=== PATIENT | male | born 1970 | race Caucasian/White ===

== ENCOUNTER → 2020-09-11 16:49 | Outpatient (CLI) | payer OTHER, SELFPAY ==
[2020-09-06 17:54] VITALS: BMI 32.0
--- NOTE | 2020-09-11 16:51 | RAD_ITS ---
STUDY: X-RAY CHEST REASON FOR EXAM: Male, 50 years old. asthma exacerbation TECHNIQUE: PA and lateral COMPARISON: 08/16/2014 FINDINGS: Less than optimal inspiratory effort is seen. There is minor discoid atelectasis at left base. There is no demonstrated pleural abnormality. Normal size heart. Normal mediastinum and ousmane. Normal visualized pulmonary arteries. Normal visualized aortic arch and descending thoracic aorta. Normal visualized thoracic spine. Normal visualized ribs, clavicles, and shoulders. There is no demonstrated abnormality of the visualized soft tissue structures of the upper abdomen. RAD/Chest PA and Lateral IMPRESSION: Diminished inspiratory effort and minor discoid atelectasis in left lower lobe. Electronically Signed: John Faria MD at 17:03 EDT , Service support ,
== END ==
PROVIDERS: Referring Provider Physician Assistant; Visit Provider Physician Assistant
DX: J45.901 Unspecified asthma with (acute) exacerbation (principal); R05 Cough
CPT/HCPCS: 71046

== ENCOUNTER 2020-10-28 17:00 | Outpatient (RCR) | payer OTHER, SELFPAY ==
[2020-03-25 15:12] VITALS: BMI 32.0
--- NOTE | 2020-08-15 18:51 | HP.PTEVAL ---
Patient's Visit Information HAYLEY SMART is a 50 year old M referred to Physical Therapy by ALFA ORDAZ with a diagnosis of tethered cord, numbness. Date of Evaluation: 08/15/20 Physical Therapist: Hermes Pizarro, DPT, OCS, CSCS - Visit Plan Frequency: 2-3x /Week Duration: 4-6 Weeks Plan: 2-3x/week for 4-6 weeks for...\. 1. rollout and stretch gastroc , quad and HS and progress to home stretch and foam roll. 2. LB AROM and core strength, progressing to ankle strength adn eventual machine general strength. 3. May use TENs and Mh for LB if painful. - Subjective Had back surgery May 27 due to tethered cord adn took some bone out and removed cyst from spine as they were giving him neuropathy in feet with numbness weakness pain in feet adn worseninig. Has had increasing trouble for 5 years. 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 Won't know outcome of surgery for 6-12 onths. Still has 7/10 pain in feet and LBP. Weakness in both legs noticeable going up and down hill and steps. Doesn't walk as fast as he should. Numbness in both feet all the time constant.Used TENS on back previously. Sleep is interrupted with pain and numbness in feet and back. Works in [employer]. 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 Doctor does not want him lifting heavy stuff for 6 months to a year. No hobbies: Dresses self, shower I. Cleaning up around the house. - Objective Walks I into PT with a mildly neuropathic steppage gait pattern, can toe walk easily but much harder to heel walker. AScends and descends steps without rail fairly easily. Traser chair and bed I. ankle AROM WFL except DF limited to -8 B, very tight in B gastroc-soleus. weakness in DF to 3 n L and 3+ R, inv and ev 3+ and PF 4+. Knee aROM is full and painfree, HS min tight at -25 90/90 adn quads mod tight , hip flexors mod tight with + madhav test. Strenth knees 4+/5,. Hip aROM WFL adn without pain, strength hip ext and abduction 3+ and flexion 4 without pain. reflexes 3/3 patella and achilles B. Sensation at deficit in B feet to gross light touch. B AROM ext max limited and slightly painful centrally, flexion mod limited and no pain,, SB min limited without pain. - SLR, - slump test. - Balance Scores Functional Gait Assessment Score: 27 % Disability: 10.0000 - Goals Goal 1:: Patient feel 50% better in LBP and foot symptoms to 3/10 at worst. Goal Time Frame: 4-6 Weeks Goal 2:: I approp HEP to limit future problems Goal Time Frame: 4-6 Weeks Goal 3:: oswestry LB 5/10 or better Goal Time Frame: 4-6 Weeks - Rehabilitation Potential Physical Therapy Diagnosis: Weakness and pain/numbness from tethered cord causing mobility and comfort deficits. Rehabilitation Potential: Questionable - Anticipated Interventions Patient/Client Instruction: Educate patient on: Condition For the Purpose of:: To decrease pain, To improve nutrient delivery to tissue, To improve muscle performance and motor function, To increase tolerance to activity/condition/position Therapeutic Exercise to Include: Strength training, Flexibilty training, Passive ROM, Active ROM For the Purpose of:: To decrease pain, To increase ROM, To improve muscle performance and motor function, To increase tolerance to activity/condition/position, To improve ability of physical actions for home/community/work/leisure Manual Therapy Techniques to Include: Soft tissue mobilization For the Purpose of:: To improve nutrient delivery to tissue TENS: Yes Thermo therapy (hot pack): Yes For the Purpose of:: To decrease pain, To increase ROM, To improve muscle performance and motor function Thank you for the opportunity to evaluate your patient. For Medicare and Medicare HMO plans, please review the plan of care and approve it. It will need to be FAXED BACK to us at [phone] for Medicare purposes. For Medicare only, by signing this I certify the plan of care. Please let me know if there are questions or concerns regarding this plan of care. Physician Signature: Date:
--- NOTE | 2020-11-12 18:00 | HP.PT.NRP ---
HAYLEY SMART was seen in my office for initial evaluation on 08/15/20. The following Plan of Care was established for this patient: Initial Frequency: 2-3x /Week Initial Duration: 4-6 Weeks Patient/Client Instruction: Educate patient on: Condition For the Purpose of:: To decrease pain, To improve nutrient delivery to tissue, To improve muscle performance and motor function, To increase tolerance to activity/condition/position Therapeutic Exercise to Include: Strength training, Flexibilty training, Passive ROM, Active ROM For the Purpose of:: To decrease pain, To increase ROM, To improve muscle performance and motor function, To increase tolerance to activity/condition/position, To improve ability of physical actions for home/community/work/leisure Manual Therapy Techniques to Include: Soft tissue mobilization For the Purpose of:: To improve nutrient delivery to tissue TENS: Yes Thermo therapy (hot pack): Yes For the Purpose of:: To decrease pain, To increase ROM, To improve muscle performance and motor function This patient was last seen in our office 10/28/20. Pertinent comments regarding their Physical therapy will appear below: Pt seen 7 visits of POC but no showed for multiple visits including the last 3. I will disocntinue him at this time due to nonattendance. At this point I will be discontinuing this patient from physical therapy. I would be happy to see this patient again in the future if found appropriate by the physician. Thank you! Hermes Pizarro, DPT, OCS, CSCS Balance/Gait/Functional tests - Balance/Special Test Scores Functional Gait Assessment Score: 27 % Disability: 10.0000 Oswestry Low Back Score: 11
== END 2020-10-28 19:00 | disposition home or self-care (01) ==
LOC: PT 17:00
DX: Q06.8 Other specified congenital malformations of spinal cord (principal); R20.0 Anesthesia of skin
CPT/HCPCS: 97110; 97140; 97163

== ENCOUNTER 2021-12-27 15:21 | Emergency (ER) | payer BC, SELFPAY ==
[2021-12-27 15:22] VITALS: BP 146/88; PULSE 66; RESP 18; TEMP 36; O2SAT 100; BMI 26.4
--- NOTE | 2021-12-27 15:56 | EX.ED.VIS.PS ---
HPI HPI - Psych History of Present Illness Chief Complaint: Anxiety Informant: patient Onset/Context/Timing Onset: Weeks Context: Gradual Onset Conflict: Family Timing: Continuous Current Severity: Mild Associated Symptoms Associated Symptoms - Psych: Negative for Suicidal Thoughts, Flight of Ideas, Threatening, Confusion, Visual Hallucinations or Auditory Hallucinations Narrative Narrative: 51-year-old male no severe past medical history other than prior back surgery. Said he is currently having marital issues she thinks this could end in divorce. He and his are still living they have 2 children. Said he has been having decreasing sleep. He has had a 15 to 20 pound weight loss over the last 2 months due to the stress. And he 1 wants to talk to somebody and to was hoping there was some medication he could be is prescribed to take the edge off of it. He has an appointment to see his primary care provider on Wednesday. He denies being homicidal or suicidal. Prior similar symptoms: No Recent Illness/Hospitalization: No PFSH PFS Medical History Acute bronchitis, unspecified Asthma Atelectasis of left lung Contact dermatitis due to poison dani Home Medications levothyroxine 50 mcg tablet tablet PO 09/06/20 [History Last Taken Unknown] lorazepam 0.5 mg tablet (Ativan) 0.5 mg PO TID PRN anxiety 5 days #10 tabs 12/27/21 [Rx Last Taken Unknown] Allergy/AdvReac Type Severity Reaction Status Date / Time No Known Allergies Allergy Verified 12/27/21 15:21 Social History Smoking Status: Never smoker alcohol intake: current alcohol intake frequency: holidays/special occasions only ROS ROS ED ROS Narrative Denies recent illness. Review of Systems ROS Unobtainable: Denies due to encephalopathy Constitutional Constitutional ED: Denies chills or fever(s) Eyes Eyes: Denies blurry vision ENT ENT ED: Denies ear pain Cardiovascular Cardiovascular: Denies chest pain Respiratory/Chest Respiratory/Chest: Denies cough or dyspnea Gastrointestinal Gastrointestinal: Denies abdominal pain Genitourinary Genitourinary ED: Denies dysuria or hematuria Musculoskeletal Musculoskeletal: Denies arthralgias Integumentary Denies abscess Neurologic Neurologic: Denies headache(s) Psychiatric Psychiatric: Reports anxiety; Denies suicidal ideation or suicidal thoughts Endocrine Endocrinology: Denies polydipsia Hematologic/Lymphatic Hematologic/Lymphatic: Denies easy bleeding Allergic/Immunologic Allergic/Immunologic ED: Denies mouth swelling or tongue swelling EXAM Physical Exam Narrative Exam Narrative: Well-appearing 51-year-old male. Vital signs stable afebrile. Exam normal. Awake and alert. Makes eye contact. Forthcoming with information. Heart, lung, abdominal exams all normal. Const Vital Signs: 12/27/21 15:22 Temperature 96.8 F L Temperature Source Temporal Pulse Rate 66 Respiratory Rate 18 Blood Pressure 146/88 H Blood Pressure Mean 107 Pulse Ox 100 Oxygen Delivery Method Room Air Positive well nourished and well developed; Negative for obese, cachectic, contractures or unkempt General Appearance ED: well developed and NAD; Negative for unkempt, cachectic, contractures or pallor Nutritional Appearance: Negative for cachectic or obese HEENT Reports moist mucous membranes normocephalic and atraumatic; Negative for trauma or tenderness Eyes PERRL and EOMs intact bilaterally General Eye ED: Negative for pale conjunctiva or scleral icterus Neck no lymphadenopathy, supple and no JVD General: Negative for tenderness Resp normal respiratory effort and clear to auscultation bilaterally Effort and Inspection: Negative for retractions Auscultation: Negative for rales, rhonchi or wheezes Cardio S1 normal heart sound, S2 normal heart sound and no murmurs Rate: regular rate; Negative for bradycardia or tachycardic Rhythm: regular rhythm; Negative for abnormal rhythm GI non-tender, non-distended and no masses Inspection: Negative for abdominal distention Auscultation: normoactive bowel sounds Palpation: soft; Negative for tender or guarding Back/Spine no CVA tenderness General Back: Negative for CVA tenderness Cervical Spine: Negative for cervical spine tenderness Thoracic Spine / Upper Back: Negative for thoracic spinal tenderness Lumbar Spine / Lower Back: Negative for lumbar spinal tenderness Extremity normal to inspection General Extremety ED: Negative for edema or tenderness General Extremity: Negative for edema Neuro oriented x3, CN's II-XII intact bilaterally and no sensory deficits noted Sensorium / Orientation: alert, oriented to person, oriented to place and oriented to time; Negative for orientation impaired, confused, lethargic or stuporous Motor Exam: strength 5/5 throughout Psych mental status grossly normal, thought process normal, cooperative, affect normal, speech normal, activity/motor behavior normal, denies hallucinations, denies homicidal ideation and denies suicidal ideation Appearance: grossly normal, appropriate and well kempt; Negative for unkempt Attitude: calm, engaged, No paranoid, No withdrawn, No bizarre, No uncooperative and No evasive Activity / Motor Behavior: appropriate eye contact; Negative for restless or mannerisms Speech: normal speech, No incoherent, No excessive and No minimal Mood & Affect: euthymic mood Thought Process: normal thought process, No circumstantial, No incoherent, No impoverished, No loose associations and No perseverating Memory / Cognition: memory grossly intact Insight: insight good Judgement: judgement good Skin General Skin Exam: Negative for jaundice or pallor Lesions: no lesions Rashes: no rashes Trauma: Negative for abrasion Wounds: Negative for amputation MDM MDM MDM Narrative Medical decision making narrative: 51-year-old male with anxiety. Exam normal. Already short prescription of half milligram Ativan 10 no refill. He sees his primary care provider on Wednesday and they can discuss long-term antianxiety medications. Also he is going to speak with our family welfare social work professor for other resources for his anxiety. Discharge Plan Triage Chief Complaint: Anxiety ED Provider: Robe Gomez Dx/Rx/DC Orders Clinical Impression: Anxiety Instructions: ED Anxiety Reaction Prescriptions: New lorazepam [Ativan] 0.5 mg tablet 0.5 mg PO TID PRN (Reason: anxiety) 5 Days Qty: 10 0RF No Action levothyroxine 50 mcg tablet PO Primary Care Provider: Care Physician,No Primary Referrals: Care Physician,No Primary [Primary Care Provider] - Syed Macdonald PA [Non-Staff] - As soon as possible Activity Restrictions/Additional Instructions: Follow-up with your scheduled primary care provider appointment on Wednesday. Discussed with him long-term antianxiety medication. Ativan as needed for anxiety. Do not drink alcohol or drive with it. Also consider other ways to treat anxiety that has counseling, exercise, meditation and yoga. Look into groups that meet to go over the issues. Disposition Disposition: Home, Self Care
--- NOTE | 2021-12-27 17:35 | CM.ED ---
NIDHI Note SW was advised by MD Gomez that patient needs resources. No assessment needed. Patient denied SI/HI to MD. SW met with patient. and him are going through a divorce per MD. Patient said that he has lost weight (20 lbs in a couple of weeks) and also has not been productive at work. Patient said that he has racing thoughts and was triggered this morning. Patient denied SI/HI. Patient said that he and are both doing individual counseling but while his therapist is nice it is not a fit. SW discussed that patient needs to focus on him and his behaviors during this time as no one can control others behavior. NIDHI educated patient on IOP/PHP program. Patient said that his employer would be receptive to him going to the program and would not fire him. Patient said that he is off on Wednesday and would be able to do assessment. SW gave him brochure and handout on IOP/PHP program. NIDHI sent email to Cassandra Muhammad regarding patient. Plan: Referral to IOP/PHP program Mary DONOVAN
== END 2021-12-27 16:22 | disposition home or self-care (01) ==
PROVIDERS: Emergency Provider Emergency Medicine; PCP Physician Assistant; Visit Provider Emergency Medicine
DX: F41.9 Anxiety disorder, unspecified (principal); J45.909 Unspecified asthma, uncomplicated; Z63.8 Other specified problems related to primary support group
CPT/HCPCS: 99282

== ENCOUNTER 2022-07-05 11:10 | Emergency (ER) | payer OTHER, SELFPAY ==
[2022-07-05 11:11] VITALS: BP 155/83; PULSE 71; RESP 14; TEMP 36.4; O2SAT 99; BMI 26.4
--- NOTE | 2022-07-05 11:42 | RAD_ITS ---
STUDY: X-RAY - THORACIC SPINE REASON FOR EXAM: Male, 52 years old. Back pain TECHNIQUE: 3 view(s) of the thoracic spine were obtained. COMPARISON: None. FINDINGS: Normal kyphosis of the thoracic spine. There is no substantial scoliosis. Normal thoracic vertebrae and endplates. Mild disc space narrowing throughout the thoracic spine. The soft tissue structures are unremarkable. RAD/Thoracic Spine 3 Views IMPRESSION: Mild degenerative changes, no acute findings Electronically Signed: Sumit Osborne MD at 12:42 EDT ,
--- NOTE | 2022-07-05 11:42 | RAD_ITS ---
STUDY: X-RAY - LUMBAR SPINE REASON FOR EXAM: Male, 52 years old. Radiating low back pain TECHNIQUE: 3 view(s) of the lumbar spine were obtained. COMPARISON: None FINDINGS: Normal lumbar lordosis. There is a mild dextroscoliosis of the lumbar spine. There is a normal alignment of the vertebrae in the lateral view. There is multilevel endplate spondylosis of the lumbar vertebrae. There is multi-level degenerative disc disease with multi-level disc space narrowing. The soft tissue structures are unremarkable. RAD/Lumbar Spine 2 or 3 Views IMPRESSION: Degenerative changes, no acute findings Mild dextroscoliosis Electronically Signed: Sumit Osborne MD at 12:42 EDT ,
--- NOTE | 2022-07-05 11:45 | ED.VIS.BACK ---
HPI <MORIAH Johansen - Last Filed: 07/05/22 12:50> History of Present Illness Chief Complaint: Back Narrative Narrative: 52-year-old male had thoracolumbar back surgery 2 years ago. States he has some intermittent chronic pain in this area that sometimes radiates down both legs. 4 days ago he slipped on his wet bathroom floor landing on his back and has had increased pain since then. No new radicular pain. No weakness numbness or tingling. He is taking Tylenol without relief. States he had been on oxycodone previously but has not been on this for about a month. He was in discussion to get a spinal stimulator. He denies saddle anesthesia or bladder or bowel incontinence. [facility] <MORIAH Johansen - Last Filed: 07/05/22 12:50> [facility] Medical History Acute bronchitis, unspecified Asthma Atelectasis of left lung Contact dermatitis due to poison dani Home Medications levothyroxine 50 mcg tablet tablet PO 09/06/20 [History Last Taken Unknown] lorazepam 0.5 mg tablet (Ativan) 0.5 mg PO TID PRN anxiety 5 days #10 tabs 12/27/21 [Rx Last Taken Unknown] naproxen 500 mg tablet (Naprosyn) 500 mg PO BID PRN pain #20 tabs 07/05/22 [Rx Last Taken Unknown] tizanidine 4 mg tablet 4 mg PO Q8H PRN muscle spasticity #15 tabs 07/05/22 [Rx Last Taken Unknown] Allergy/AdvReac Type Severity Reaction Status Date / Time No Known Allergies Allergy Verified 12/27/21 15:21 Social History Smoking Status: Never smoker alcohol intake: current alcohol intake frequency: holidays/special occasions only ROS <MORIAH Johansen - Last Filed: 07/05/22 12:50> ROS ED ROS Narrative Constitutional: Negative for fever, chills, malaise. CVS: Negative for chest pain. Respiratory: Negative for shortness of breath. Neuro: Negative for motor/sensory dysfunction. Skin: Negative for wound. Musc: Negative for joint pain, swelling, trauma. EXAM <MORIAH Johansen - Last Filed: 07/05/22 12:50> Physical Exam Narrative Exam Narrative: CONST: Patient sitting in no acute distress. EYES: Normal inspection. NECK: Normal inspection. RESP: No respiratory distress, CTAB. CVS: Regular rate and rhythm, no murmur, no gallop. Back: Normal inspection, healed midline thoracic/lumbar incision. Slight tenderness over the midline T/L-spine with no step-offs or crepitus. No bruising or signs of external injury. SKIN: Color normal, no rash, warm, dry, intact. EXTREMITIES: Normal appearance, no pedal edema. 5/5 bilateral hip flexion, knee flexion/extension, DF/PF. Normal sensation, 2+ PT pulses. NEURO: Oriented x4. PSYCH: Normal affect. Const Vital Signs: 07/05/22 11:11 07/05/22 13:04 Temperature 97.5 F L Temperature Source Temporal Pulse Rate 71 75 Respiratory Rate 14 18 Blood Pressure 155/83 H 138/75 H Blood Pressure Mean 107 Pulse Ox 99 98 Oxygen Delivery Method Room Air <Dr. Kumar Hester DO - Last Filed: 07/05/22 13:07> Physical Exam Const Vital Signs: 07/05/22 11:11 07/05/22 13:04 Temperature 97.5 F L Temperature Source Temporal Pulse Rate 71 75 Respiratory Rate 14 18 Blood Pressure 155/83 H 138/75 H Blood Pressure Mean 107 Pulse Ox 99 98 Oxygen Delivery Method Room Air MDM <MORIAH Johansen - Last Filed: 07/05/22 12:50> MDM MDM Narrative Medical decision making narrative: Patient had a mechanical fall landing on his back is having increased lumbar back pain. History of lumbar surgery 2 years ago. He has no new radicular pain or red flag symptoms. No external signs of trauma on exam. He has a remote healed midline incision with some tenderness over the thoracic and lumbar spine but no step-offs. Lower extremity MSPs and reflexes are intact. X-rays of the T/L-spine show no acute fracture. Mild degenerative changes. Patient had significant improvement after Toradol so I prescribed naproxen and tizanidine for home. He was instructed if these do not give significant improvement over time to see his pain management physician and he was discharged in stable condition. Interventions / MDM: Differential diagnosis: Lumbar contusion, lumbar fracture, lumbar muscle spasms Diagnosis considered but do not suspect: N/A My EKG interpretation: N/A Imaging independently reviewed and interpreted by myself: 3 view lumbar spine: External documents reviewed: N/A Test considered but not ordered:N/A ED course: Attending note: Patient seen and evaluated with audiovisual aids technician. I perform my own [id number] evaluation. I agree with the plan of work-up. Mechanical fall 4 days ago get in the shower he slipped hitting hardwood floor. No head injuries no loss of conscious. No radicular symptoms. History of lumbar decompression surgery 2 years ago up [place]. Tried his gabapentin with no relief. He is followed by pain management last prescription a month ago. Has tried Tylenol with no relief. Pain has not worsened however also not improved. Exam lower lumbar midline scar upper lumbar down to lower lumbar. Tender palpation midline lumbar and paralumbar there is no ecchymosis. Straight leg test negative. Re-evaluation: stable Disposition discussed with patient/family/significant other: Case discussed with consulting clinician: N/A Radiography Diagnostic Testing: Clinical Impression(s) from Imaging Studies Lumbar Spine X-Ray 07/05/22 11:42 IMPRESSION: Degenerative changes, no acute findings Mild dextroscoliosis Electronically Signed: Sumit Osborne MD at 12:42 EDT , Thoracic Spine X-Ray 07/05/22 11:42 IMPRESSION: Mild degenerative changes, no acute findings Electronically Signed: Sumit Osborne MD at 12:42 EDT , ED attending interpretation of thoracic lumbar x-ray showed no acute fracture. <Dr. Kumar Hester, DO - Last Filed: 07/05/22 13:07> [facility] Narrative Medical decision making narrative: Patient had a mechanical fall landing on his back is having increased lumbar back pain. History of lumbar surgery 2 years ago. He has no new radicular pain or red flag symptoms. No external signs of trauma on exam. He has a remote healed midline incision with some tenderness over the thoracic and lumbar spine but no step-offs. Lower extremity MSPs and reflexes are intact. X-rays of the T/L-spine show no acute fracture. Mild degenerative changes. Patient had significant improvement after Toradol so I prescribed naproxen and tizanidine for home. He was instructed if these do not give significant improvement over time to see his pain management physician and he was discharged in stable condition. Interventions / MDM: Differential diagnosis: Lumbar contusion, lumbar fracture, lumbar muscle spasms Diagnosis considered but do not suspect: N/A My EKG interpretation: N/A Imaging independently reviewed and interpreted by myself: 3 view lumbar spine: Degenerative changes mild dextro scoliosis. No fractures. 3 view thoracic spine, no fractures. External documents reviewed: N/A Test considered but not ordered:N/A ED course: Attending note: Patient seen and evaluated with audiovisual aids technician. I perform my own [id number] evaluation. I agree with the plan of work-up. Mechanical fall 4 days ago get in the shower he slipped hitting hardwood floor. No head injuries no loss of conscious. No radicular symptoms. History of lumbar decompression surgery 2 years ago up [place]. Tried his gabapentin with no relief. He is followed by pain management last prescription a month ago. Has tried Tylenol with no relief. Pain has not worsened however also not improved. Exam lower lumbar midline scar upper lumbar down to lower lumbar. Tender palpation midline lumbar and paralumbar there is no ecchymosis. Straight leg test negative. Patient treated with NSAIDs. Prescription NSAIDs and muscle relaxers with outpatient follow-up. Re-evaluation: stable Disposition discussed with patient/family/significant other: Patient Case discussed with consulting clinician: N/A Radiography Diagnostic Testing: Clinical Impression(s) from Imaging Studies Lumbar Spine X-Ray 07/05/22 11:42 IMPRESSION: Degenerative changes, no acute findings Mild dextroscoliosis Electronically Signed: Sumit Osborne MD at 12:42 EDT , Thoracic Spine X-Ray 07/05/22 11:42 IMPRESSION: Mild degenerative changes, no acute findings Electronically Signed: Sumit Osborne MD at 12:42 EDT Reading Location ID and State: [facility] / [place] , Service support , Discharge Plan Triage Chief Complaint: Back ED Midlevel Provider: Marva Garcia ED Provider: Kumar Hester Dx/Rx/DC Orders Clinical Impression: Acute lumbar back pain, Muscle spasm Instructions: ED Back Care Tips Prescriptions: New tizanidine 4 mg tablet 4 mg PO Q8H PRN (Reason: muscle spasticity) Qty: 15 0RF naproxen [Naprosyn] 500 mg tablet 500 mg PO BID PRN (Reason: pain) Qty: 20 0RF No Action levothyroxine 50 mcg tablet PO lorazepam [Ativan] 0.5 mg tablet 0.5 mg PO TID PRN (Reason: anxiety) 5 Days Qty: 10 0RF Primary Care Provider: Syed Macdonald Referrals: Syed Macdonald PA [Primary Care Provider] - Activity Restrictions/Additional Instructions: I prescribed a pain reliever and muscle relaxer. You can continue taking Tylenol 1000 mg every 6 hours with this if you need additional pain control. Follow-up with your pain management physician. Disposition Disposition: Home, Self Care Discharge Date/Time: 07/05/22 13:04
[2022-07-05] MEDS: Ketorolac 30 MG/ML Syringe IM (11:59)
[2022-07-05 13:04] VITALS: BP 138/75; PULSE 75; RESP 18; O2SAT 98
== END 2022-07-05 13:04 | disposition home or self-care (01) ==
PROVIDERS: Emergency Provider Emergency Medicine; PCP Physician Assistant; Visit Provider Emergency Medicine
DX: M54.50 Low back pain, unspecified (principal); M62.838 Other muscle spasm; G89.29 Other chronic pain; J45.909 Unspecified asthma, uncomplicated
CPT/HCPCS: 72072; 72100; 96372; 99282